=== PATIENT | female | born 1985 | race Two or more races ===

== ENCOUNTER 2017-02-13 13:15 | Emergency (ER) | payer BC, MEDICAID ==
[~2017-02-13] VITALS: Ht 157.5 cm; Wt 62.6 kg
[2017-02-13 13:34] VITALS: BP 112/82
== END 2017-02-13 14:38 | disposition home or self-care (01) ==
LOC: ER 13:16
DX: H60.591 Other noninfective acute otitis externa, right ear (principal); H61.22 Impacted cerumen, left ear; Z88.0 Allergy status to penicillin
CPT/HCPCS: 99283; A4606; Z7610

== ENCOUNTER 2018-03-05 21:36 | Emergency (ER) | payer BC ==
[~2018-03-05] VITALS: Ht 160 cm; Wt 72.6 kg
--- NOTE | 2018-03-05 22:00 | NUR ---
Pt came in for stiff and painful neck, 10/10 on scale , after she "flipped over" today while playing with daughter who climbed on her back. Pt also complains of diarrhea for a day. She is A, O/4, able to move all extremities bby hersel. Awaiting MD for eval.
[2018-03-05] MEDS ORDERED: CYCLOBENZAPRINE 10 MG TABLET ONE (22:23)
[2018-03-05] MEDS ORDERED: IBUPROFEN 600 MG TABLET PO ONE ×2 (22:23→22:30)
[2018-03-05] MEDS ORDERED: CYCLOBENZAPRINE 10 MG TABLET PO ONE (22:30)
--- NOTE | 2018-03-05 23:25 | NUR ---
all ordered meds given.
--- NOTE | 2018-03-05 23:27 | NUR ---
Patient discharged to home in stable condition. Written and verbal after care instructions given. Patient verbalizes understanding of instruction. Patient left facility on foot with steady gait. No s/s of acute distress or sob noted. VS stable. Patient being taken home by mother.
[2018-03-05 23:29] VITALS: BP 107/71
== END 2018-03-05 23:30 | disposition home or self-care (01) ==
LOC: ER 21:43
DX: S13.4XXA Sprain of ligaments of cervical spine, initial encounter (principal); M62.838 Other muscle spasm; R19.7 Diarrhea, unspecified; F41.9 Anxiety disorder, unspecified; F32.9 Major depressive disorder, single episode, unspecified; Z90.89 Acquired absence of other organs; Z88.0 Allergy status to penicillin; X58.XXXA Exposure to other specified factors, initial encounter; Y93.89 Activity, other specified; Y92.89 Other specified places as the place of occurrence of the external cause; Y99.8 Other external cause status
CPT/HCPCS: A4606; Z7610

== ENCOUNTER 2018-10-04 22:24 | Emergency (ER) | payer BC ==
[~2018-10-04] VITALS: Ht 157.5 cm; Wt 73.0 kg
[2018-10-04 22:59] VITALS: BP 104/62
[2018-10-04 23:42] LABS: APPEARANCE,URINE Clear (CLEAR); BILIRUBIN,URINE Negative (NEGATIVE); BLOOD, URINE Negative Ery/uL (NEGATIVE); COLOR,URINE Yellow (YELLOW); KETONES,URINE Negative (NEGATIVE); LEUKOCYTE ESTERASE ,URINE Trace (NEGATIVE); NITRITE, URINE Negative (NEGATIVE); PH,URINE 5.5 (5.0-8.0); PROTEIN,URINE Negative (NEGATIVE); UGLUCOSE Negative (NEGATIVE); UROBILINOGEN,URINE 0.2 EU/dL (0.2)
[2018-10-05 00:05] LABS: BACTERIA,URINE Moderate /HPF (None Seen); RBC,URINE 0-2 /HPF (0-2); SQUAMOUS EPITHELIAL CELL,UR Many /HPF (None Seen); WBC,URINE 0-4 /HPF (0-3)
== END 2018-10-05 00:30 | disposition home or self-care (01) ==
LOC: ER 22:24
DX: N39.0 Urinary tract infection, site not specified (principal); F32.9 Major depressive disorder, single episode, unspecified; F41.9 Anxiety disorder, unspecified; Z98.890 Other specified postprocedural states; Z90.89 Acquired absence of other organs; Z88.0 Allergy status to penicillin
CPT/HCPCS: 81000-TC; 84703-TC; 87086-TC

== ENCOUNTER 2018-11-16 13:51 | Emergency (ER) | payer BC ==
[~2018-11-16] VITALS: Ht 157.5 cm; Wt 72.6 kg
--- NOTE | 2018-11-16 14:04 | NUR ---
COUGH AND FEVER GENERALIZED BODY ACHES X 5 DAYS. TAKING OTC MEDS, NO RELIEF. DENIES SOB, PAIN, DIZZINESS, WEAKNESS, N/V. NO ACUTE DISTRESS NOTED. SKIN INTACT. READY FOR EVAL.
--- NOTE | 2018-11-16 14:47 | NUR ---
URINE SENT TO STAT LAB
[2018-11-16] MEDS ORDERED: DEXAMETHASONE 1 MG TABLET ONE (16:09)
[2018-11-16] MEDS ORDERED: DEXAMETHASONE 4 MG TABLET ONE (16:10)
--- NOTE | 2018-11-16 16:17 | NUR ---
Patient discharged to home in stable condition. Written and verbal after care instructions given. Patient verbalizes understanding of instruction.
[2018-11-16 16:19] VITALS: BP 116/78
[2018-11-16] MEDS ORDERED: DEXAMETHASONE 1 MG TABLET PO ONE (16:30)
== END 2018-11-16 16:19 | disposition home or self-care (01) ==
LOC: ER 13:52
DX: J40 Bronchitis, not specified as acute or chronic (principal); F41.9 Anxiety disorder, unspecified; F32.9 Major depressive disorder, single episode, unspecified; Z90.89 Acquired absence of other organs; Z98.890 Other specified postprocedural states; Z88.0 Allergy status to penicillin
CPT/HCPCS: 71045; 84703; 99284; J8540 ×2